=== PATIENT | male | born 1965 | race Caucasian/White ===

== ENCOUNTER → 2020-11-03 | Outpatient (CLI) | payer BC, OTHER ==
--- NOTE | 2020-11-08 08:44 | PATH ---
[facility] [address] [place] [address] PATHOLOGY RPT PROCEDURE Name: TALYA SERRATO Room #: REG ROB Best.#: [id number] Admission: 11/03/20 Date of : 63 Discharge: Report #: [id number] Path Case #: [id number] Note [facility] Accession Number: [id number] TESTS RESULT FLAG UNITS REF RANGE LAB Clinician Provided Cytology Information No. of containers..01 Other (Miscellaneous) Source: 01 LEFT THYROID DIAGNOSIS: 02 LEFT THYROID, FINE NEEDLE ASPIRATION INADEQUATE, INSUFFICIENT CELLS FOR STUDY. RED BLOOD CELLS ARE PRESENT. SCANT WATERY COLLOID IS PRESENT. THIS INTERPRETATION INCLUDES EVALUATION OF A CELL BLOCK. NO THYROID FOLLICULAR CELLS PRESENT. Pathologist ICD10: 02 E04.1 Signed out by: Adwoa Freeman MD, Pathologist NPI- [id number] Performed by: Fsetus Levine, Flume Worker ([facility]) Gross description: 01 20ML, COLORLESS, 2FX 2DQ /LCS 11/04/2020 0719 Local FLAG LEGEND: L-Low Normal,H-High Normal,LL-Alert Low,HH-Alert High <-Panic Low,>-Panic High,A-Abnormal,AA-Critical Abnormal Performed at: [address] [place] [address] Larry Echavarria MD, [address] [address] Ashlyn Freeman MD, Specimen Comment: A courtesy copy of this report has been sent to [phone] Specimen Comment: Report sent to DR BALDWIN Specimen Comment: A duplicate report has been generated due to demographic updates. Performed at: [address], [place], [place] [id number] MD Larry Echavarria MD Phone: [phone]
== END | disposition home or self-care (01) ==
LOC: ULTRA 08:42
PROVIDERS: ATTEND Otolaryngology
DX: E04.1 Nontoxic single thyroid nodule (principal)